=== PATIENT | female | born 1940 | race Caucasian/White ===

== ENCOUNTER → 2021-09-16 | Outpatient (CLI) | payer MEDICARE, BC ==
[~2021-09-16] MED LIST: ACET325T9 PO; APIX5TAB PO; DULO30CA2 PO; FLUT16SP NS; IBUP-1060 PO; LACT1CAP6 PO; LANS30CA PO; LEVO100T5 PO; MELA5TAB11 SL; MENT118G TP; METO-239 PO; PRAV40TA2 PO; PROP15DR EACHEYE; VITA25006 PO
--- NOTE | 2021-09-16 12:45 | PDOC1 ---
INITIAL PAIN CONSULT DATE OF SERVICE: DOS: DATE: 09/16/21 TIME: 12:39 CHIEF COMPLAINT: Chief Complaint: Low back and right greater than left lower extremity pain HISTORY OF PRESENT ILLNESS: 80-year-old female presents with history of pain low back bilateral lower extremities right greater than left for about 2 years now. Patient reports no specific injury or accident that she is aware but has significant pain in the low back right lower extremity greater than left lower extremity radiating posterior gluteus posterior thigh posterior calf into the lower leg especially in the right calf and into the ankle patient reports is constant throbbing and shooting at times worse with walking standing changing positions aching in the low back itself bilaterally patient reports is better with sitting or laying down does not generally awaken her from sleep at night generally does not affect her bowel bladder control but does affect her ability to walk she uses a cane or walking stick and she has a cane with her today which is holding in her left h and. Patient reports has had physical therapy as recently as April of this year as well as chiropractic treatment and exercises if there is ongoing which is not decreased pain significantly over time patient reports it helps temporarily but then the pain returns. 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 Patient have an MRI scan lumbar spine showing L4-5 with ligamentous hypertrophy marked central spinal and bilateral lateral recess stenosis with moderate bilateral neuroforaminal stenosis as well L5-S1 shows loss of disc height postsurgical changes present posterior with broad-based right lateral disc bulge resulting in marked right neuroforaminal stenosis with apparent mass- effect on the right L5 nerve root. Patient reports no loss of motor function but significant fatigability especially of the right lower extremity with ambulation. Patient been taking [id number] Tylenol which helps but about 20 to 30%. PAST MEDICAL HISTORY: PMH: Arthritis, shortness of breath, hearing loss, esophageal reflux, atrial fibrillation status post ablation PREVIOUS SURGERIES: Past Surgical Hx: Cataract extraction, right knee replacement, heart ablation, bilateral hip replacement, thyroidectomy, lumbar synovial cystectomy CURRENT MEDICATIONS: Current Meds: Active Scripts Medications Dose Route/Sig Max Daily Dose Days Date Category Systane 0.3-0.4% Eye Drops (Propylene Glycol/Peg 400) 15 Ml Drops 1 Drop EACHEYE QID 09/16/21 Reported Lansoprazole 30 Mg Capsule.dr 1 Cap PO DAILY 09/16/21 Reported Melatonin 5 Mg Tab.subl 1 Tab SL QHS 30 09/16/21 Reported Tylenol (Acetaminophen) 325 Mg Tablet 500 Mg PO Q4-6HRS 09/16/21 Reported Probiotic (Lactobacillus Acidophilus) 1 Each Capsule 1 Each PO DAILY 09/16/21 Reported Noxifol-D3 2,500 Unit-1 mg Tab (Vitamin D3/Folic Acid) 2,500 Unit Tablet 5,000 Unit PO DAILY 09/16/21 Reported Biofreeze (Menthol) 118 Ml Gel..ml. 1 Priya TP QID 7 09/16/21 Reported Cymbalta (Duloxetine Hcl) 30 Mg Capsule.dr 30 Mg PO BID 09/16/21 Reported Pravastatin Sodium 40 Mg Tablet 1 Tab PO QHS 09/16/21 Reported Ibuprofen 800 Mg Tablet 800 Mg PO PRN Q6HRS PRN 09/16/21 Reported Levothyroxine Sodium 100 Mcg Tablet 1 Tab PO DAILY 09/16/21 Reported Metoprolol Succinate ( Xl ) (Metoprolol Succinate) 25 Mg Tab.er.24h 0.5 Tab PO BID 09/16/21 Reported Fluticasone Propionate Nasal [place] (Fluticasone Propionate) 16 Gm [place].susp 2 [place] NS DAILY 09/16/21 Reported Eliquis (Apixaban) 5 Mg Tablet 5 Mg PO BID 09/16/21 Reported ALLERGIES; Allergies: Coded Allergies: diphenhydramine (Verified Adverse Reaction, Intermediate, dizzyness, 09/16/21) FAMILY HISTORY: Family Hx: Heart disease, cancers SOCIAL HISTORY: Social Hx: Patient is nondrug alcohol does not smoke not use any illegal illicit recreational drugs is lives locally in [facility] and is currently retired. REVIEW OF SYSTEMS: ROS: Positive for those items mentioned in history of present illness, all systems are reviewed, otherwise negative ,and are complete full and well-documented on patient's chart. PHYSICAL EXAM: VS: Blood pressure is 144/75 pulse 83 respirations 18 temperature 97.6 3 Fahrenheit height is 5 feet 5 inches weight is 169 pounds PE: PHYSICAL EXAMINATION: GENERAL: The patient is awake, alert, oriented, appropriate, very pleasant in demeanor HEENT: Shows normocephalic, atraumatic. Extraocular movements are intact and symmetrical. Oral cavity: Mucous membranes moist and pink. NECK: Shows anterior throat supple without palpable lymphadenopathy noted. Swallow reflex symmetrical. CHEST: Shows normal on inspection. Breath sounds are clear bilaterally, no rales rhonchi wheezes auscultated. HEART: Shows S1, S2 clear. No murmurs auscultated. ABDOMEN: Soft, nontender, nondistended, obese. No palpable organomegaly is noted. No rebound or guarding demonstrated. BACK: Shows spine grossly in the midline. Normal-appearing cervical lordotic curvature. There is slightly increased thoracic kyphosis, some minor flattening of the lumbar lordotic curvature. Lumbar paraspinous muscles show symmetrical on inspection, on palpation shows some moderate tenderness diffusely throughout the upper, middle and lower distribution of the paraspinous muscles bilaterally and also into the lower thoracic paraspinous musculature, firm and tender, but without specific trigger points, without radiation of pain. The patient has good rotational motion of the lumbar spine, both laterally as well as extension and flexion without significant difficulty. No tenderness over the spinous processes, sacrum or sacroiliac regions. EXTREMITIES: Lower extremities show deep tendon reflexes 2+ in the patellar and tendo calcaneus tendons. Motor exam is 4 on a scale of 5 with right dorsiflexion, extension, quadriceps and hamstring flexion and 5/5 on the left. Peripheral pulses are 1 posterior tibial. No peripheral edema is noted bilaterally. Lower extremities are warm and dry to touch, equal in color and appearance. Straight leg raise noted to be positive on the right about 40 degrees, left side is []. Gaenslen's and Crow's maneuvers are negative. The patient is able to stand, stand on her toes with some moderate difficulty as she does lose balance with standing all of her weight on her right leg is using a cane in her left hand it does appear to favor the right lower extremity with ambulation. SKIN: Shows warm and dry, good turgor. No edema. No sores, rashes or bruising throughout. IMPRESSION: Impression: 80-year-old female with approximate 2-year history of low back bilateral lower extremity pain right greater than left in a radicular fashion. Lumbar spine MRI scan as noted Arthritis History of atrial fibrillation with anticoagulation therapy Plan: Options discussed with patient including continued physical therapies interventional techniques as well as medical management. Patient elects interventional techniques. We discussed a lumbar epidural steroid injections description as well as anatomical models to describe the procedure. Patient will wait for clearance with her primary care physician who is prescribing her Eliquis and once this is been cleared to hold this for 3 days and return for lumbar epidural steroid injection once this has been accomplished. In the meantime, patient will continue with stretching strength exercises and daily exercise as tolerated. ALFONZO TELLO MD Sep 16, 2021 12:45
== END | disposition home or self-care (01) ==
LOC: PNCL 11:45
PROVIDERS: ATTEND Anesthesiology
DX: M79.605 Pain in left leg (principal); M54.59 Other low back pain; M19.90 Unspecified osteoarthritis, unspecified site; K21.9 Gastro-esophageal reflux disease without esophagitis; I48.91 Unspecified atrial fibrillation; Z79.01 Long term (current) use of anticoagulants; Z79.899 Other long term (current) drug therapy; Z98.890 Other specified postprocedural states; Z82.49 Family history of ischemic heart disease and other diseases of the circulatory system; Z88.8 Allergy status to other drugs, medicaments and biological substances
CPT/HCPCS: 99205; G0463

== ENCOUNTER → 2021-10-19 | Outpatient (CLI) | payer MEDICARE, BC ==
[~2021-10-19] MED LIST changes: +IOHEXOL 180 MG/ML 10 ML VIAL. ONE; +methylPREDNISolone ACETATE 40 MG/ML VIAL. ONE; +methylPREDNISolone ACETATE 80 MG/ML VIAL. ONE
--- NOTE | 2021-10-19 16:36 | PDOC ---
Progress Note - Pain Clinic Date of Service: DOS: DATE: 10/19/21 TIME: 16:34 Diagnosis: Dx: Lumbar radiculopathy with lumbar degenerative disease and lumbar spinal stenosis History or Present Illness: HPI: 81-year-old female returns for follow-up status post initial evaluation complaining of pain low back bilateral lower extremities initially only on the right side but now the left side is painful as well in the posterior gluteus posterior thigh is right-sided in the posterior thigh posterior calf to the foot patient reports that this is come up since her last visit and now is painful on the left side as well as the right patient reports a tingling and radiating weight is a 9 on scale 10 is worse over the past week 8 on average in 4 to sleep and is an 8 today patient which is tingling and radiating worse with walking standing changing positions better with sitting or laying down also complains of right shoulder pain which has come up since her last visit and is more noticeable as well patient reports no bowel or bladder incontinence reports the pain is worse with changing positions getting up walking standing and difficulty with sleeping. Patient reports no bowel or bladder incontinence. Physical Exam: VS: Blood pressure is 126/76 pulse 88 respirations are 20 temperature is 98.7 F weight is 167 pounds PE: PHYSICAL EXAMINATION: GENERAL: The patient is awake, alert, oriented, appropriate, very pleasant in demeanor HEENT: Shows normocephalic, atraumatic. Extraocular movements are intact and symmetrical. Oral cavity: Mucous membranes moist and pink. NECK: Shows anterior throat supple without palpable lymphadenopathy noted. Swallow reflex symmetrical. CHEST: Shows normal on inspection. Breath sounds are clear bilaterally. HEART: Shows S1, S2 clear. No murmurs auscultated. ABDOMEN: Soft, nontender, nondistended. No palpable organomegaly is noted. No rebound or guarding demonstrated. BACK: Shows spine grossly in the midline. Normal-appearing cervical lordotic curvature. There is slightly increased thoracic kyphosis, some minor flattening of the lumbar lordotic curvature. Lumbar paraspinous muscles show symmetrical on inspection, on palpation shows some moderate tenderness diffusely throughout the upper, middle and lower distribution of the paraspinous muscles, but without specific trigger points, without radiation of pain. The patient has good rotational motion of the lumbar spine, both laterally as well as extension and flexion without significant difficulty. EXTREMITIES: Lower extremities show deep tendon reflexes 2 in the patellar and tendo calcaneus tendons. Motor exam is 4 on a scale of 5 with right dorsiflexion, extension, quadriceps and hamstring flexion and 5/5 on the left. Peripheral pulses are 1 posterior tibial. No peripheral edema is noted bilaterally. Lower extremities are warm and dry. SKIN: Shows warm and dry, good turgor. No edema. No sores, rashes or bruising throughout. Procedure: Procedure: Options were discussed with patient. Patient chart was reviewed as her current medication regimen updated current review of systems updated today as well. We will proceed with a lumbar epidural steroid injection today with fluoroscopic guidance. Risks were discussed including but not limited to: Bleeding, infection, possibility of epidural hematoma and subsequent neurological compromise, dural puncture, headaches, spinal cord and/or nerve damage, side effects of steroid medication, and poor results regarding pain control. Patient understands and wished to proceed. Patient will return to clinic in approximately 3 weeks for follow-up, was counseled as return appointment, activity level, and side effect to be aware of. Medication Injected: Med Injected: Procedure is lumbar epidural steroid injection under local anesthetic using sterile prep and drape at the L5-S1 level using C-arm fluoroscopic guidance in both AP and lateral views medications injected is 120 mg Depo-Medrol +10mL preservative-free normal saline and 2 mL contrast- condition at discharge is stable patient tolerated procedure well had no complications. Condition at Discharge: Condition at Discharge: Condition at discharge stable, patient tolerated procedure well and had no complications. ALFONZO TELLO MD Oct 19, 2021 16:36
--- NOTE | 2021-10-19 16:37 | PDOC4 ---
Procedure Note: ICD 10 Code: ICD 10 Code: M54.17 M51.7 M4 8.07 Procedure Note: Patient was consented for lumbar epidural steroid injection with fluoroscopic guidance. Risks were discussed including but not limited to: Bleeding, infection, possibility of epidural hematoma and subsequent neurological compromise, dural puncture, headaches, spinal cord and/or nerve damage, side effects of steroid medication, and poor results regarding pain control. Patient understands and wished to proceed. Procedure is lumbar epidural steroid injection under local anesthetic using ster ile prep and drape at the L5-S1 level using C-arm fluoroscopic guidance in both AP and lateral views medications injected is 120 mg Depo-Medrol +10mL preservative-free normal saline and 2 mL contrast- condition at discharge is stable patient tolerated procedure well had no complications. ALFONZO TELLO MD Oct 19, 2021 16:37
== END | disposition home or self-care (01) ==
LOC: PNCL 15:15
PROVIDERS: ATTEND Anesthesiology
DX: M51.16 Intervertebral disc disorders with radiculopathy, lumbar region (principal); M48.061 Spinal stenosis, lumbar region without neurogenic claudication; Z79.899 Other long term (current) drug therapy; Z88.8 Allergy status to other drugs, medicaments and biological substances
CPT/HCPCS: 62323; J1030; J1040; Q9965

== ENCOUNTER → 2021-11-09 | Outpatient (CLI) | payer MEDICARE, BC ==
--- NOTE | 2021-11-09 13:31 | PDOC ---
Progress Note - Pain Clinic Date of Service: DOS: DATE: 11/09/21 TIME: :28 Diagnosis: Dx: Lumbar radiculopathy with lumbar degenerative disease and lumbar spinal stenosis History or Present Illness: HPI: 81-year-old female returns for follow-up status post lumbar epidural steroid injection x1. Patient reports about 50% improvement in the low back and right lower extremity pain left leg doing better now which was new on her last visit but the pain now is more on the right side patient reports in the posterior gluteus posterior thigh posterior calf lateral thigh as well patient reports a 9 on scale 10 is worse over the past week 6 on average 3 distillation is a 6 today patient scribes as aching and sharp in the back shooting and radiating burning sometimes cramping and stabbing the leg with extended standing better with sitting or laying down generally does not awaken her from sleep at night. Pat toryrobyn reports no bowel or bladder incontinence no loss of motor function of the right leg. Physical Exam: VS: Blood pressure is 142/89 pulse 96 respirations 18 temperature 98.0 05 feet 5 inches weight is 166 pounds PE: PHYSICAL EXAMINATION: GENERAL: The patient is awake, alert, oriented, appropriate, very pleasant in demeanor HEENT: Shows normocephalic, atraumatic. Extraocular movements are intact and symmetrical. Oral cavity: Mucous membranes moist and pink. Dentition is intact. NECK: Shows anterior throat supple without palpable lymphadenopathy noted. Swallow reflex symmetrical. CHEST: Shows normal on inspection. Breath sounds are clear bilaterally. HEART: Shows S1, S2 clear. No murmurs auscultated. ABDOMEN: Soft, nontender, nondistended. No palpable organomegaly is noted. BACK: Shows spine grossly in the midline. Normal-appearing cervical lordotic curvature. There is slightly increased thoracic kyphosis, some minor flattening of the lumbar lordotic curvature. Lumbar paraspinous muscles show symmetrical on inspection, on palpation shows some moderate tenderness diffusely throughout the upper, middle and lower distribution of the paraspinous muscles without specific trigger points, without radiation of pain. The patient has good rotational motion of the lumbar spine, both laterally as well as extension and flexion without significant difficulty. EXTREMITIES: Lower extremities show deep tendon reflexes 2+ in the patellar and tendo calcaneus tendons. Motor exam is 4 on a scale of 5 with right dorsiflexion, extension, quadriceps and hamstring flexion and 5/5 on the left. Peripheral pulses are 1+ posterior tibial. No peripheral edema is noted bilaterally. Lower extremities are warm and dry to touch, equal in color and appearance. SKIN: Shows warm and dry, good turgor. No edema. No sores, rashes or bruising throughout. Procedure: Procedure: Options discussed with the patient. Patient chart reviews her current medication regimen updated current review of systems updated today as well. We will proceed with a lumbar epidural steroid injection stable fluoroscopic guidance risks were discussed including but not limited to: Bleeding, infection, possibility of epidural hematoma and subsequent neurological compromise, dural puncture, headaches, spinal cord and/or nerve damage, side effects of steroid medication, and poor results regarding pain control. Patient understands and wished to proceed. Patient return to clinic in approximately weeks for follow- up, was counseled as return appointment, activity level, and side effects beware of. Medication Injected: Med Injected: Procedure is lumbar epidural steroid injection under local anesthetic using sterile prep and drape at the L5-S1 level using C-arm fluoroscopic guidance in both AP and lateral views medications injected is 120 mg Depo-Medrol +10mL preservative-free normal saline and 2 mL contrast- condition at discharge is stable patient tolerated procedure well had no complications. Condition at Discharge: Condition at Discharge: Condition at discharge stable, patient Brittaney the procedure well and had no complications. ALFONZO TELLO MD Nov 09, 2021 13:31
--- NOTE | 2021-11-09 13:31 | PDOC4 ---
Procedure Note: ICD 10 Code: ICD 10 Code: M54.17 M51.87 M4 8.07 Procedure Note: Patient was consented for lumbar epidural steroid injection with fluoroscopic guidance. Risks were discussed including but not limited to: Bleeding, infection, possibility of epidural hematoma and subsequent neurological compromise, dural puncture, headaches, spinal cord and/or nerve damage, side effects of steroid medication, and poor results regarding pain control. Patient understands and wished to proceed. Procedure is lumbar epidural steroid injection under local anesthetic using gonzales rile prep and drape at the L5-S1 level using C-arm fluoroscopic guidance in both AP and lateral views medications injected is 120 mg Depo-Medrol +10mL preservative-free normal saline and 2 mL contrast- condition at discharge is stable patient tolerated procedure well had no complications. ALFONZO TELLO MD Nov 09, 2021 13:31
== END | disposition home or self-care (01) ==
LOC: PNCL 12:54
PROVIDERS: ATTEND Anesthesiology
DX: M51.16 Intervertebral disc disorders with radiculopathy, lumbar region (principal); M48.061 Spinal stenosis, lumbar region without neurogenic claudication; Z79.899 Other long term (current) drug therapy; Z88.8 Allergy status to other drugs, medicaments and biological substances
CPT/HCPCS: 62323; J1030; J1040; Q9965

== ENCOUNTER → 2022-02-24 | Outpatient (CLI) | payer MEDICARE, BC ==
[~2022-02-24] MED LIST changes: +DEXAMETHASONE PRES.FREE 10 MG/ML VIAL. ONE; -methylPREDNISolone ACETATE 40 MG/ML VIAL. ONE; -methylPREDNISolone ACETATE 80 MG/ML VIAL. ONE
--- NOTE | 2022-02-24 12:04 | PDOC ---
Progress Note - Pain Clinic Date of Service: DOS: DATE: 02/24/22 TIME: 12:02 Diagnosis: Dx: Lumbar radiculopathy with lumbar degenerative disease and lumbar spinal stenosis History or Present Illness: HPI: 81-year-old female returns for follow-up status post lumbar epidural steroid injection x2. Patient last seen November 09, 2021. Patient did very well with about a 50% improvement overall with the pain returning now in the low back and in the bilateral lower extremities mostly lateral thighs and posterior thighs patient reports is aching and sharp dull and tight alternating in the low back rating to lower extremities patient rates as a 9 on scale 10 is worse over the past week 8 on average to its least and is a 2 today patient reports worse with walking standing changing positions after last injection instructed much better with all these activities especially walking and standing and sleeping well at night continues to sleep well does not awaken her from sleep. Patient reports no bowel or bladder incontinence scribes pain is tight in the legs and aching in the back shooting in the legs at times as well. Patient reports no loss of motor function but significant fatigability in the lower extremities with standing walking more than about 15 to 20 minutes. Physical Exam: VS: Blood pressure is 121/74 pulse 85 respirations 18 F weight is 167 pounds. PE: PHYSICAL EXAMINATION: GENERAL: The patient is awake, alert, oriented, appropriate, very pleasant in demeanor HEENT: Shows normocephalic, atraumatic. Extraocular movements are intact and symmetrical. Oral cavity: Mucous membranes moist and pink. NECK: Shows anterior throat supple without palpable lymphadenopathy noted. Swallow reflex symmetrical. CHEST: Shows normal on inspection. Breath sounds are clear bilaterally, no rales or rhonchi auscultated. HEART: Shows S1, S2 clear. No murmurs auscultated. ABDOMEN: Soft, nontender, nondistended. No palpable organomegaly is noted. BACK: Shows spine grossly in the midline. Normal-appearing cervical lordotic curvature. There is slightly increased thoracic kyphosis, some flattening of the lumbar lordotic curvature. Lumbar paraspinous muscles show symmetrical on inspection, on palpation shows some moderate tenderness diffusely throughout the upper, middle and lower distribution of the paraspinous muscles, but without specific trigger points, without radiation of pain. The patient has good rotational motion of the lumbar spine, both laterally as well as extension and flexion without significant difficulty. No tenderness over the spinous processes, sacrum or sacroiliac regions. EXTREMITIES: Lower extremities show deep tendon reflexes 2+ in the patellar and tendo calcaneus tendons. Motor exam is 4 on a scale of 5 with right do rsiflexion, extension, quadriceps and hamstring flexion and 5/5 on the left. Peripheral pulses are 1+ posterior tibial. No peripheral edema is noted bilaterally. Lower extremities are warm and dry to touch, equal in color and appearance. SKIN: Shows warm and dry, good turgor. No edema. No sores, rashes or bruising throughout. Procedure: Procedure: Options were discussed with the patient. Patient's old chart was reviewed as her current medication regimen updated current review of systems updated today as well. We will proceed with a lumbar epidural steroid injection today with fluoroscopic guidance. Risks were discussed including but not limited to: Bleeding, infection, possibility of epidural hematoma and subsequent neurological compromise, dural puncture, headaches, spinal cord and/or nerve damage, side effects of steroid medication, and poor results regarding pain control. Patient understands and wished to proceed. Patient will return to the clinic in approximately 2 weeks for follow-up, was counseled as to return appointment, activity level, and side effect to be aware of. Medication Injected: Med Injected: Procedure is lumbar epidural steroid injection under local anesthetic using sterile prep and drape at the L5-S1 level using C-arm fluoroscopic guidance in both AP and lateral views medications injected is 20 mg dexamethasone +10mL preservative-free normal saline and 2 mL contrast- condition at discharge is stable patient tolerated procedure well had no complications. Condition at Discharge: Condition at Discharge: Condition at discharge stable, patient tolerated procedure well and had no complications. ALFONZO TELLO MD Feb 24, 2022 12:04
--- NOTE | 2022-02-24 12:05 | PDOC4 ---
Procedure Note: ICD 10 Code: ICD 10 Code: M54.17 M51.87 M4 8.07 Procedure Note: Patient consented for lumbar epidural steroid injection fluoroscopic guidance. Risks were discussed including but not limited to: Bleeding, infection, possibility of epidural hematoma and subsequent neurological compromise, dural puncture, headaches, spinal cord and/or nerve damage, side effects of steroid medication, and poor results regarding pain control. Patient understands and wished to proceed. Procedure is lumbar epidural steroid injection under local anesthetic using sterile prep and drape at the L5-S1 level using C-arm fluoroscopic guidance in both AP and lateral views medications injected is 20 mg dexamethasone +10mL preservative-free normal saline and 2 mL contrast- condition at discharge is stable patient tolerated procedure well had no complications. ALFONZO TELLO MD Feb 24, 2022 12:05
== END | disposition home or self-care (01) ==
LOC: PNCL 11:02
PROVIDERS: ATTEND Anesthesiology
DX: M51.16 Intervertebral disc disorders with radiculopathy, lumbar region (principal); M48.061 Spinal stenosis, lumbar region without neurogenic claudication; Z79.899 Other long term (current) drug therapy; Z88.8 Allergy status to other drugs, medicaments and biological substances
CPT/HCPCS: 62323; J1100; Q9965